=== PATIENT | female | born 1990 | race Caucasian/White ===

== ENCOUNTER 2020-01-16 10:13 | Emergency (ER) | payer OTHER ==
[~2020-01-16] VITALS: Ht 152.4 cm; Wt 82.6 kg
[~2020-01-16 10:13] MED LIST: DILANTIN100 MG; RELAGESIC TABL1 EACH PO
== END 2020-01-16 20:54 | disposition home or self-care (01) ==
LOC: ER 10:13
DX: N39.0 Urinary tract infection, site not specified (principal); R10.31 Right lower quadrant pain